=== PATIENT | male | born 1995 | race Caucasian/White ===

== ENCOUNTER 2024-08-20 15:26 | Emergency (ER) | payer MEDICAID, SELFPAY ==
--- NOTE | 2024-08-20 15:28 | XRR_ITS ---
PROCEDURE INFORMATION: Exam: XR Left Knee Exam date and time: 08/20/2024 3:51 PM Age: 29 years old Clinical indication: Pain; Knee; Left; Additional info: Lt knee swelling/redness/infection; Difficulty bearing weight; PT has been on abx for 10 days with little improvement. TECHNIQUE: Imaging protocol: Radiologic exam of the left knee. Views: 3 views. COMPARISON: No relevant prior studies available. FINDINGS: Bones/joints: No acute fracture or dislocation. Tiny superior patellar enthesophyte. Soft tissues: Normal. XR/XR knee LT 3V* [id number] IMPRESSION: No acute osseous findings.
[2024-08-20 15:33] VITALS: BP 135/92; PULSE 97; RESP 16; TEMP 36.7; O2SAT 98; BMI 30.9
--- NOTE | 2024-08-20 15:42 | W.ED.EXTPRO ---
HPI - Extremity Problem General: Chief complaint: Extremity Injury, Lower Stated complaint: L knee pain Time Seen by Provider: 08/20/24 15:38 Source: patient Mode of arrival: ambulatory Limitations: no limitations History of Present Illness: 29yo male presents from urgent care for concern of a possible septic knee. Patient reports he has had redness and swelling of the left knee for approximately 10 days. Reports he was out of state at his parents and helping them with some projects. States he does not know of any specific injury that occurred. Reports he was seen at a clinic in [place] where he was prescribed doxycycline and cefdinir. States that he has taken them for 10 days and had some improvement as well as increased movement of the knee, but today it feels as if it is more swollen on the inside. He is still able to bend his leg and ambulates with no difficulty. Patient denies any chronic medical issues, fever, chills, body aches, previous injury of the knee, any other concerns at this time. Associated symptoms: Deny fever(s) Related Data Home Medications ?Medication ?Instructions ?Recorded ?Confirmed ibuprofen 200 mg tablet (Advil) 400 mg PO Q6H PRN Pain 08/20/24 08/20/24 Previous Rx's ?Medication ?Instructions ?Recorded sulfamethoxazole 800 1 tab PO BID #14 tabs 08/20/24 mg-trimethoprim 160 mg tablet Allergies Allergy/AdvReac Type Severity Reaction Status Date / Time No Known Allergies Allergy Unverified 08/20/24 15:03 Review of Systems Const: Denies: fever(s), chills or body aches GI: Denies: vomiting Musc: Reports: extremity swelling (left knee) and joint redness (faint, left knee); Denies: limited range of motion Skin/Breast: Denies: pruritus or skin tenderness [facility] PFSH: Social History Smoking and tobacco/nicotine status: never used tobacco/nicotine Physical Exam Const: COMMON NORMALS: no acute distress and patient oriented x3 GENERAL APPEARANCE: cooperative ORIENTATION/CONSCIOUSNESS: Yes awake OTHER: Patient is ambulatory to the exam room unassisted. He is sitting upright on the stretcher in no acute distress. He is able to give history with no difficulty. He is interactive with exam appropriately. No family at bedside at time of exam HENMT: COMMON NORMALS: normocephalic HEAD & SCALP: normocephalic Chest: CHEST: Yes Symmetrical chest wall rise Resp: COMMON NORMALS: normal respiratory effort, No use of accessory muscles and clear to auscultation bilaterally EFFORT & INSPECTION: Yes able to speak in complete sentences and Yes symmetric chest movement AUSCULTATION: clear to auscultation bilaterally Extremity: COMMON NORMALS: full ROM LEFT LOWER EXTREMITY: Yes knee joint Left knee: Yes palpation (mild tenderness) and Yes ROM (Full extension. Slightly decreased flexion) Neuro: COMMON NORMALS: patient oriented x3 Psych: COMMON NORMALS: cooperative Course Vital Signs: Vital signs: Vital Signs Temperature 98.0 F 08/20/24 15:33 Pulse Rate 74 08/20/24 17:30 Respiratory Rate 14 08/20/24 17:30 Blood Pressure 95/77 08/20/24 17:30 Pulse Oximetry 98 08/20/24 17:30 Oxygen Delivery Me thod Room Air 08/20/24 17:13 MDM - Extremity (Nontraumatic) Medical Decision Making 29yo male presents from urgent care for concern of a possible septic knee. Patient reports he has had redness and swelling of the left knee for approximately 10 days. Reports he was out of state at his parents and helping them with some projects. States he does not know of any specific injury that occurred. Reports he was seen at a clinic in [place] where he was prescribed doxycycline and cefdinir. States that he has taken them for 10 days and had some improvement as well as increased movement of the knee, but today it feels as if it is more swollen on the inside. He is still able to bend his leg and ambulates with no difficulty. Patient denies any chronic medical issues, fever, chills, body aches, previous injury of the knee, any other concerns at this time. Patient is nontoxic in appearance. Vital signs are stable. Differential diagnoses include but are not limited to: Septic joint, cellulitis, bursitis, infected bursa, fracture, foreign body. No leukocytosis, white blood cell count noted to be 9.27. CRP is in the normal range at 3.0. ESR is in the normal range at 8. X-ray of the left knee with no acute bony abnormalities noted. There was no indication of joint effusion. Discussed these findings with patient. Discussed with patient with unremarkable labs and full range of motion of his knee, he does not have a septic joint. Advised of potential of bursitis. 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 Prescription of Bactrim was sent to patient's pharmacy for him to begin using if the mild redness worsens instead of resolves. Encourage patient to follow-up with primary care within the next 2 to 3 days. Return precautions provided. Patient states understanding and has no further questions or concerns at this time. Medical Records I reviewed the patient's medical records. Lab Data I reviewed the patient's lab results. 08/20/24 15:48 Radiology Impressions Knee X-Ray 08/20/24 15:28 IMPRESSION: No acute osseous findings. Laboratory Results WBC 9.27 10^3/uL (3.29-11.43) 08/20/24 15:48 RBC 6.24 10^6/uL (3.85-5.65) H 08/20/24 15:48 Hgb 17.40 g/dL (11.27-16.99) H 08/20/24 15:48 Hct 51.1 % (37-53) 08/20/24 15:48 MCV 81.9 fl (82-101) L 08/20/24 15:48 MCH 27.9 pg (27-33) 08/20/24 15:48 MCHC 34.1 g/dL (30-55) 08/20/24 15:48 RDW 12.1 % (12.1-15.1) 08/20/24 15:48 Plt Count 355 10^3/cmm (157-399) 08/20/24 15:48 MPV 9.2 fL (7.4-10.4) 08/20/24 15:48 Neut % (Auto) 50.4 % 08/20/24 15:48 Lymph % (Auto) 34.0 % 08/20/24 15:48 [place] % (Auto) 7.6 % 08/20/24 15:48 Eos % (Auto) 6.6 % 08/20/24 15:48 Baso % (Auto) 0.9 % 08/20/24 15:48 Neut # (Auto) 4.68 10^3/uL (1.8-7.7) 08/20/24 15:48 Lymph # (Auto) 3.2 10^3/uL (0.8-4.8) 08/20/24 15:48 [place] # (Auto) 0.7 10^3/uL (0.2-0.9) 08/20/24 15:48 Eos # (Auto) 0.6 10^3/uL (0.0-0.8) 08/20/24 15:48 Baso # (Auto) 0.1 10^3/uL (0.0-0.1) 08/20/24 15:48 Nucleated RBC % (auto) 0 % 08/20/24 15:48 Nucleated RBCs # 0.0 /100WBC 08/20/24 15:48 ESR 8 mm/hr (0-10) 08/20/24 15:48 C-Reactive Protein 3.0 mg/L (0.0-4.9) 08/20/24 15:48 All radiology interpretation(s) finalized by discharge Discharge Plan Discharge Patient Disposition: Home Clinical Impression: Bursitis of left knee Condition: Stable Prescriptions: New sulfamethoxazole-trimethoprim 800-160 mg tablet 1 tab PO BID Qty: 14 0RF Discontinued cefdinir 300 mg capsule 300 mg PO Q12H doxycycline hyclate 100 mg tablet 100 mg PO BID No Action ibuprofen [Advil] 200 mg Tablet 400 mg PO Q6H PRN (Reason: Pain) Discharge Orders: Discharge ED (Routine); Ordered 08/20/24 Ordered By: Brian Pelayo Referrals: Andrew Saldana MD [Primary Care Provider] - Discharge Diet: Usual diet Discharge Activity: Increase activity as tolerated Patient Instructions: Knee Bursitis (ED) Activity Restrictions/Additional Instructions: There is no indication of a joint space infection of the left knee This is likely related to bursitis of the knee. Please see provided handout with information about knee bursitis Bactrim has been sent to the pharmacy due to concern of the mild redness returning. If the redness does worsen, begin the antibiotic Application of a cool compress as well as elevation will help with the swelling Follow-up with primary care, call in 2 to 3 days with an update of symptoms and to discuss a recheck Return to the emergency department if any rapid worsening symptoms, onset of fever associated with worsening, and as needed Print Language: [place]i Coding Level of Care Code ED Consumer Lender for Darya Holden
[2024-08-20 15:54] LABS: Basophils # 0.1 10^3/uL (0.0-0.1); Basophils % 0.9 %; Eosinophils # 0.6 10^3/uL (0.0-0.8); Eosinophils % 6.6 %; Hematocrit 51.1 % (37-53); Lymphocytes # 3.2 10^3/uL (0.8-4.8); Mean Corpuscular HGB Conc 34.1 g/dL (30-55); Mean Corpuscular Hemoglobin 27.9 pg (27-33); Mean Corpuscular Volume 81.9 fl (82-101); Mean Platelet Volume 9.2 fL (7.4-10.4); Monocytes # 0.7 10^3/uL (0.2-0.9); Monocytes % 7.6 %; Neutrophils # 4.68 10^3/uL (1.8-7.7); Neutrophils % 50.4 %; Nucleated Red Blood Cells % 0 %; Platelet Count 355 10^3/cmm (157-399); Red Blood Count 6.24 10^6/uL (3.85-5.65); Red Cell Distribution Width 12.1 % (12.1-15.1); White Blood Count 9.27 10^3/uL (3.29-11.43)
[2024-08-20 16:01] LABS: Erythrocyte Sedimentation Rate 8 mm/hr (0-10)
[2024-08-20 16:17] VITALS: BP 140/84; PULSE 78; RESP 16; O2SAT 96
[2024-08-20 17:13] VITALS: BP 128/76; PULSE 73; RESP 16; O2SAT 97
[2024-08-20 17:30] VITALS: BP 95/77; PULSE 74; RESP 14; O2SAT 98
== END 2024-08-20 17:29 | disposition home or self-care (01) ==
PROVIDERS: Emergency Medicine; Emergency Provider Nurse Practitioner; PCP Family Medicine
DX: M70.52 Other bursitis of knee, left knee (principal)
CPT/HCPCS: 36415; 73562; 85025; 85651; 86140; 99284